=== PATIENT | male | born 1985 ===

== ENCOUNTER 2017-09-18 20:59 | Emergency (ER) | payer BC ==
[~2017-09-18] VITALS: Ht 180.3 cm; Wt 91.0 kg
[2017-09-18 21:16] VITALS: TEMP 36.8; Ht 180.3 cm; Wt 91.0 kg
--- NOTE | 2017-09-18 22:50 | EMERGENCY ROOM VISIT NOTE ---
ED Visit Note First contact with patient: 21:40 CHIEF COMPLAINT: Right ear pain HISTORY OF PRESENT ILLNESS: This 32-year-old male presents to the ER with chief complaint of acute onset of right ear pain at 6:30 this evening. The patient states that he is had an irritated throat at night for the past 3 days but resolves throughout the day. He also admits to a slight cough but denies any head congestion, fever, shortness of breath, body aches. The patient does admit to needing his ears flushed in the past. REVIEW OF SYSTEMS: 6 system review was performed and was negative unless stated otherwise in history of present illness. PMH: The patient is healthy; right ankle surgery, right knee surgery SOCIAL HISTORY: Patient lives with his family. The patient admits to occasional alcohol use but denies any tobacco use. PHYSICAL EXAM: Vital Signs: Were reviewed Reviewed Nurse's notes. GENERAL: 32- year-old white male appears in no acute distress. MENTAL Status: Alert and oriented 3. EARS: Bilateral canals with cerumen unable to visualize TMs. NOSE : Nasal mucosa with minimal erythema and engorgement. PHARYNX: No erythema or edema noted. Airway is adequate. No exudate noted NECK: Supple, no lymphadenopathy noted. LUNGS: Clear to auscultation without wheezes rales or rhonchi. CARDIAC: Regular rate and rhythm without murmur. SKIN: No rashes noted. EMERGENCY DEPARTMENT COURSE: Warm water irrigation and gentle curetting was used to remove the cerumen from the right ear canal to reveal canal without erythema but there was a small perforation noted on the inferior TM. No fluid draining from the perforation. This most likely is chronic. I also attempted to irrigate the left ear with warm water irrigation and gentle curetting to remove only a portion of the cerumen. The patient's ear canal became very irritated and painful therefore we stopped with the irrigation. I still could not visualize the TM. Cortisporin otic drops are placed into the left ear and the patient was given the remainder of the bottle to treat the left ear at home. The patient was discharged home in stable condition DIAGNOSIS: Cerumen impaction of the ear canals Small perforation right TM DISCHARGE INSTRUCTIONS & TREATMENT: Keep right ear canal clear of water for the next 7 days. Use Cortisporin otic drops into the left ear as directed. Also recommend using Debrox drops in the left ear for 5 days then follow-up with your family doctor for further ear irrigation. If symptoms worsen in the interim, follow-up with your family doctor. Current/Historical Medications No Active Prescriptions or Reported Meds Allergies Coded Allergies: Penicillins (Unverified Allergy, Unknown, HIVES, 09/18/17) Sulfa Antibiotics (Unverified Allergy, Unknown, HIVES, 09/18/17) Terfenadine (Unverified Allergy, Unknown, HIVES, 09/18/17) Vital Signs Date Time Temp Pulse Resp B/P (MAP) Pulse Ox O2 Delivery O2 Flow Rate FiO2 09/18/17 21:16 36.8 69 18 162/89 100 Departure Information Prescriptions No Active Prescriptions or Reported Meds Referrals No Doctor, Assigned (PCP) Patient Instructions [facility]
[2017-09-18] MEDS ORDERED: NEOMYCIN/POLYMYX/HYDROCORT OT SOLN 10 ML BTL OT ONE (23:00)
[2017-09-18 23:23] VITALS: BP 142/85; PULSE 56; O2SAT 98
== END 2017-09-18 23:24 | disposition home or self-care (01) ==
LOC: C.EDB 21:00 → C.EDD 23:24
DX: H61.21 Impacted cerumen, right ear (principal); H72.91 Unspecified perforation of tympanic membrane, right ear; Z88.0 Allergy status to penicillin; Z88.2 Allergy status to sulfonamides; Z88.8 Allergy status to other drugs, medicaments and biological substances; Z98.890 Other specified postprocedural states